=== PATIENT | female | born 1980 | race Caucasian/White ===

== ENCOUNTER 2017-08-18 18:57 | Emergency (ER) | payer OTHER ==
[2017-08-18 19:11] VITALS: BP 122/76
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
[2017-08-18] MEDS ORDERED: Ketorolac INJ* 60 MG/2 ML VIAL IM ONE (20:50)
--- NOTE | 2017-08-18 21:26 | RAD ---
Indication: Neck pain and spasm. 5 views of the cervical spine demonstrates vertebral bodies to be normal in height. There is straightening of the normal lordosis. Spinal canal appears to be intact. No prevertebral soft tissue swelling is noted. Spinal canal appears to be intact. IMPRESSION: STRAIGHTENING OF THE NORMAL LORDOSIS WITHOUT FRACTURE.
[2017-08-18] MEDS ORDERED: Diazepam TAB(*) 5 MG PO ONE (21:29)
[2017-08-18] MEDS ORDERED: Carisoprodol TAB* 350 MG PO ONE (21:40)
== END 2017-08-18 21:56 | disposition home or self-care (01) ==
LOC: UCCORT 18:57
DX: M62.838 Other muscle spasm (principal); M43.8X2 Other specified deforming dorsopathies, cervical region; F17.210 Nicotine dependence, cigarettes, uncomplicated
CPT/HCPCS: 72050; 96372; 99212; A9270-GY; G0463; J1885

== ENCOUNTER 2018-02-02 09:47 | Emergency (ER) | payer OTHER ==
[2018-02-02 10:37] VITALS: BP 127/99
[2018-02-02] MEDS ORDERED: Ketorolac INJ* 30 MG/ML 1 ML VIAL IM ONE (11:32)
--- NOTE | 2018-02-02 11:46 | UC ---
Back Pain HPI - HPI Summary HPI Summary: 37 yo female presents with a number of issues Tried to get in to see her provider today but was told to come here #1- chronic LBP s/p injury lifting 5-10 yrs ago has intermittent pain radiating down right leg no bowel or bladder dysfunction no hx CA #2- neck pain x months pain into right shoulder denies any recent injuries state she live with daily pain but that symtpoms have been progressively worsening - History of Current Complaint Chief Complaint: UCBackPain Stated Complaint: BACK/NECK PAIN Time Seen by Provider: 02/02/18 11:21 Hx Obtained From: Patient Hx Last Menstrual Period: 6 yrs Onset/Duration: Gradual Onset, Other - back-years, neck months Timing: Constant Severity Initially: Severe Severity Currently: Severe Pain Intensity: 8 Pain Scale Used: 0-10 Numeric Back Pain: Is Diffuse, Radiates To - right leg at times (back), right shoulder constantly (neck) Aggravating Factor(s): Movement, Lifting, Bending, Walking, Nothing Alleviating Factor(s): Nothing Associated Signs And Symptoms: Positive: Negative Related History: Similar Episode Dx As - bulging disks Full Body (No Head): 1 - pain/tender/spasm/ limited ROM 2 - pain here/limited ROM, + SLR at 35 degrees - Allergies/Home Medications Allergies/Adverse Reactions: Allergies Allergy/AdvReac Type Severity Reaction Status Date / Time No Known Allergies Allergy Verified 02/02/18 10:37 Home Medications: Home Medications Acetaminophen [Acetaminophen Extra Strength] 1,000 mg PO SEE INSTRUCTIONS PRN [History Confirmed 02/02/18] PMH/Surg Hx/FS Hx/Imm Hx Previously Healthy: Yes Cardiovascular History: Hypertension Respiratory History: Asthma GI/ History: Ulcer Neurological History: Migraine - Surgical History Surgical History: Yes Surgery Procedure, Year, and Place: [facility], uterine ablation - Family History Known Family History: Positive: Hypertension, Other - daughter has seizure disorder. - Social History Alcohol Use: Occasionally Substance Use Type: None Smoking Status (MU): Light Every Day Tobacco Smoker Type: Cigarettes Amount Used/How Often: 09/18 PPD Length of Time of Smoking/Using Tobacco: Since Age 11 Have You Smoked in the Last Year: Yes Household Exposure Type: Cigars Review of Systems Constitutional: Negative Skin: Negative Eyes: Negative ENT: Negative Respiratory: Negative Cardiovascular: Negative Gastrointestinal: Negative Genitourinary: Negative Motor: Negative Neurovascular: Negative Musculoskeletal: Arthralgia, Myalgia Neurological: Negative Psychological: Negative Is Patient Immunocompromised?: No All Other Systems Reviewed And Are Negative: Yes Physical Exam Triage Information Reviewed: Yes Appearance: Well-Appearing, No Pain Distress, Well-Nourished Vital Signs: Initial Vital Signs Temp 98.1 F 02/02/18 10:26 Pulse 87 02/02/18 10:26 Resp 20 02/02/18 10:26 BP 127/99 02/02/18 10:26 Pulse Ox 100 02/02/18 10:26 Vital Signs Reviewed: Yes Eyes: Positive: Conjunctiva Clear ENT: Positive: Hearing grossly normal. Negative: Nasal congestion, Nasal drainage, Muffled voice, Hoarse voice Neck: Negative: Supple, Nontender Respiratory: Positive: Lungs clear, Normal breath sounds, No respiratory distress Cardiovascular: Positive: RRR Musculoskeletal: Positive: No Edema Neurological: Positive: Alert Psychological Exam: Normal Skin Exam: Normal Diagnostics - Radiology No standard instances Xray Interpretation: No Acute Changes - #1 STRAIGHTENING OF THE NORMAL LORDOSIS WITHOUT FRACTURE. INTERVERTEBRAL FORAMINA APPEARS PATENT #2 Degenerative spondylosis and facet joint osteoarthritis Back Pain Course/Dx - Differential Dx/Diagnosis Provider Diagnoses: cervical strain. chronic low back pain with intermittent sciatica Discharge - Sign-Out/Discharge Documenting (check all that apply): Discharge/Admit/Transfer - Discharge Plan Condition: Stable Disposition: HOME Prescriptions: Cyclobenzaprine TAB* [Flexeril TAB*] 10 mg PO TID PRN #21 tab PRN Reason: Spasms Meloxicam [Mobic] 15 mg PO DAILY #14 tablet Omeprazole CAP* [Prilosec CAP* 20 MG] 20 mg PO BEDTIME #14 cap. traMADol TAB* [Ultram*] 50 mg PO Q6HR PRN #20 tab MDD 4 PRN Reason: Pain - Moderate To Severe Patient Education Materials: Cervical Strain (ED), Soft Cervical Collar (ED), Chronic Back Pain (ED) Forms: *Work Release Referrals: White,Anamaria, MD [Primary Care Provider] - As Soon As Possible - Billing Disposition and Condition Condition: STABLE Disposition: HOME
--- NOTE | 2018-02-02 12:04 | RAD ---
Indication: Neck pain. 5 views of the cervical spine demonstrates straightening of the normal lordosis. Spinal canal appears to be intact. There is no evidence of fracture. IMPRESSION: STRAIGHTENING OF THE NORMAL LORDOSIS WITHOUT FRACTURE. INTERVERTEBRAL FORAMINA APPEARS PATENT.
--- NOTE | 2018-02-02 12:09 | RAD ---
Indication: Worsening lumbar sacral spine pain for months. Comparison: No relevant prior exams available on the [facility] PACS for comparison. Technique: AP, lateral, and oblique views lumbar sacral spine. Report: Negative for fracture or suspicious focal osseous lesion. Slight RIGHT convex curve centered at L3-L4. Normal lumbar lordosis. Minimal degenerative L3-L4 and grade 1 retrolisthesis. Multilevel mild vertebral and plate osteophytosis. Moderately severe L4-L5 and severe L5-S1 disc space narrowing. Associated reactive endplate sclerosis at L5-S1. Facet joint osteoarthritis most prominent from L3-L4 through L5-S1. Unremarkable paraspinal soft tissue contours. Pelvic phleboliths noted. IMPRESSION: Degenerative spondylosis and facet joint osteoarthritis.
== END 2018-02-02 12:44 | disposition home or self-care (01) ==
LOC: UCCORT 09:47
DX: S16.1XXA Strain of muscle, fascia and tendon at neck level, initial encounter (principal); M54.40 Lumbago with sciatica, unspecified side; I10 Essential (primary) hypertension; J45.909 Unspecified asthma, uncomplicated; F17.210 Nicotine dependence, cigarettes, uncomplicated; X50.9XXA Other and unspecified overexertion or strenuous movements or postures, initial encounter; Y92.9 Unspecified place or not applicable; Y99.8 Other external cause status
CPT/HCPCS: 72050; 72110; 96372; 99213; G0463; J1885

== ENCOUNTER 2018-02-27 16:38 | Emergency (ER) | payer OTHER ==
[2018-02-27 17:25] VITALS: BP 138/82
--- NOTE | 2018-02-27 18:17 | UC ---
Abdominal Pain Female HPI - HPI Summary HPI Summary: 37 female presents with a number of complaints 1. unable to swallow solids x 2 weeks odynphagia 2. 75 pound wt gain in 1 1/2 mos 3. severe pain left lower back and lower abdomen x weeks pain worse since uterus was instrumented by Dr. Enrique no f/c no n/v/d requests an ENT consult with Dr. Delaney - History of Current Complaint Chief Complaint: UCGeneralIllness Stated Complaint: TROUBLE SWALLOWING SOLIDS, LOWER BACK/ABD PAIN Time Seen by Provider: 02/27/18 17:13 Hx Obtained From: Patient Hx Last Menstrual Period: ensure/ablation Onset/Duration: Gradual Onset, Lasting Weeks Timing: Constant Severity Initially: Severe Severity Currently: Severe Pain Intensity: 8 Pain Scale Used: 0-10 Numeric Location: Diffuse Radiates: Yes Radiates to: Other - left lower back Character: Aching, Cramping Alleviating Factor(s): Nothing Allergies/Adverse Reactions: Allergies Allergy/AdvReac Type Severity Reaction Status Date / Time No Known Allergies Allergy Verified 02/27/18 17:07 Home Medications: Home Medications Omeprazole CAP* [Prilosec CAP* 20 MG] 20 mg PO DAILY 02/27/18 [History Confirmed 02/27/18] Topiramate [Topamax] 400 mg PO DAILY 02/27/18 [History Confirmed 02/27/18] PMH/Surg Hx/FS Hx/Imm Hx Previously Healthy: Yes - Surgical History Surgical History: Yes Surgery Procedure, Year, and Place: [facility], uterine ablation - Family History Known Family History: Positive: Hypertension, Other - daughter has seizure disorder. - Social History Alcohol Use: Occasionally Substance Use Type: None Smoking Status (MU): Light Every Day Tobacco Smoker Type: Cigarettes Amount Used/How Often: 1/7 PPD Length of Time of Smoking/Using Tobacco: Since Age 11 Have You Smoked in the Last Year: Yes Household Exposure Type: Cigars Review of Systems Constitutional: Negative Skin: Negative Eyes: Negative ENT: Sore Throat Respiratory: Negative Cardiovascular: Negative Gastrointestinal: Abdominal Pain Genitourinary: Negative Motor: Negative Neurovascular: Negative Musculoskeletal: Myalgia Neurological: Negative Psychological: Negative Is Patient Immunocompromised?: No All Other Systems Reviewed And Are Negative: Yes Physical Exam Triage Information Reviewed: Yes Appearance: Well-Nourished, Pain Distress Vital Signs: Initial Vital Signs Temp 98.4 F 02/27/18 17:15 Pulse 117 02/27/18 17:15 Resp 20 02/27/18 17:15 BP 138/82 02/27/18 17:15 Pulse Ox 99 02/27/18 17:15 Vital Signs Reviewed: Yes Eyes: Positive: Conjunctiva Clear ENT: Positive: Pharynx normal, Uvula midline. Negative: Tonsillar swelling, Tonsillar exudate, Trismus, Muffled voice, Hoarse voice Neck: Positive: Supple, Nontender, No Lymphadenopathy Respiratory: Positive: Lungs clear, Normal breath sounds, No respiratory distress Cardiovascular: Positive: RRR, Tachycardia Abdomen Description: Negative: Nontender - rlq and llq tenderness Bowel Sounds: Positive: Present Musculoskeletal: Positive: ROM Intact, No Edema Neurological: Positive: Alert Psychological Exam: Normal Skin Exam: Normal Abd Pain Female Course/Dx - Course Course Of Treatment: I explained to pt that I felt she should go to the ER for further investigation. She is tachycardic and we are unable to evaluate her for the potential of a uterine perforation or other emergent abdominal problem. I suggested she go to the ER. I explained that we could not refer her to Dr. Delaney. She became irate and stormed out after signing an AMA. I am unsure if she will present to [facility]. I spoke to the ER and gave Phuong Hernandez NP a heads up. - Differential Dx/Diagnosis Provider Diagnoses: Abdominal pain of uncertain cause. odynophagia/dysphagia of uncertain cause. wt gain of uncertain cause Discharge - Sign-Out/Discharge Documenting (check all that apply): Discharge/Admit/Transfer - Discharge Plan Condition: Stable Disposition: AGAINST MEDICAL ADVICE Referrals: Anamaria Cortez MD [Primary Care Provider] - As Soon As Possible Gabriele Kathleen MD [Medical Doctor] - Additional Instructions: I would like to send you to the ER for evaluation of your symptoms You complaints can not be evaluated here You recently had your uterus instrumented by your [employer] you have severe abdominal and back pain You could have a perforated uterus and an intrabdominal infection If you change you mind go directly to the ER your 75 wt gain in 1 1/2 months as well as your inability to swallow need to be worked up as well - Billing Disposition and Condition Condition: STABLE Disposition: Against Medical Advice
== END 2018-02-27 18:02 | disposition left against medical advice (07) ==
LOC: UCCORT 16:38
DX: R10.9 Unspecified abdominal pain (principal); R13.10 Dysphagia, unspecified; R63.5 Abnormal weight gain
CPT/HCPCS: 99212; G0463